=== PATIENT | female | born 2000 | race African-American/Black ===

== ENCOUNTER 2020-11-03 17:27 | Emergency (ER) | payer SELFPAY ==
[~2020-11-03 17:27] MED LIST: FIORICET1 EACH PO; TOPROL XL 25MG25 MG PO
[2020-11-03] MEDS ORDERED: VENTOLIN HFA IN18 GM INH (19:35)
== END 2020-11-03 19:40 | disposition home or self-care (01) ==
LOC: FER 17:27
DX: J45.901 Unspecified asthma with (acute) exacerbation (principal); I10 Essential (primary) hypertension
CPT/HCPCS: 71045; 93005; J1100